=== PATIENT | female | born 1930 | race Caucasian/White ===

== ENCOUNTER 2016-10-12 13:09 | Outpatient (CLI) | payer OTHER, MEDICARE ==
--- NOTE | 2016-10-12 15:43 | DIAGNOSTIC IMAGING REPORT ---
PROCEDURE: US KIDNEY/RENAL COMPLETE INDICATION: Vaginal prolapse. Assess postvoid residual bladder volume and hydronephrosis. TECHNIQUE: Transabdominal scans of the kidneys with calculation of resistive indices. Prevoid and postvoid bladder volumes were obtained. COMPARISON: None. FINDINGS: RIGHT: Measures 10.4 x 5 x 4 cm. Cortex measures 0.9 cm. No calculi or hydronephrosis. Resistive indices measure 0.76 or less. LEFT: Measures 10 x 5 x 4 cm. Cortex measures 1 cm. Mild to moderate left hydronephrosis and dilation of the proximal left ureter of. Distal obstructing lesion not visualized. Normal resistive indices measure less than 0.69. BLADDER: Ureteral jets not visualized. Prevoid bladder volume 104 ml. Postvoid residual volume 8 ml. IMPRESSION: 1. Mild to moderate left ureterohydronephrosis. Level of obstruction not determined. Recommend CT IVP. 2. Mild bilateral renal cortical atrophy 3. 8 ml postvoid residual bladder volume
== END 2016-10-12 23:00 ==
LOC: US SRH 13:09
DX: R39.14 Feeling of incomplete bladder emptying (principal); N13.1 Hydronephrosis with ureteral stricture, not elsewhere classified; N26.1 Atrophy of kidney (terminal)

== ENCOUNTER 2016-10-19 15:51 | Outpatient (CLI) | payer OTHER, MEDICARE | END 2016-10-19 23:00 | LOC: LAB SRH 15:51 | DX: Z01.812 Encounter for preprocedural laboratory examination (principal); Z01.818 Encounter for other preprocedural examination; N13.30 Unspecified hydronephrosis | CPT/HCPCS: 90074; 92560; 92630 ==

== ENCOUNTER 2016-10-22 13:31 | Outpatient (CLI) | payer OTHER, MEDICARE ==
--- NOTE | 2016-10-22 14:36 | DIAGNOSTIC IMAGING REPORT ---
PROCEDURE: CT IVP CLINICAL INDICATION: L URETEROHYDRONEPHROSIS TECHNIQUE: Preliminary AP and lateral deck worker views of the abdomen were obtained. Subsequently, noncontrast axial images were obtained of the entire abdomen and pelvis. 125 ml of Isovue 300 was injected intravenously, and axial images were obtained of the abdomen and pelvis with biphasic imaging of the liver and kidneys, followed by sagittal and coronal reformations. Postinjection AP deck worker view of the abdomen was also obtained. COMPARISON: Renal ultrasound 10/12/2016. FINDINGS: NONCONTRAST ABDOMEN: No renal or ureteral calculi. CONTRAST ABDOMEN: Normal enhancement and excretion of the kidneys. 5 mm cortical mid right renal cyst. No hydronephrosis or mass. Normal ureters. Right middle lobe scarring. Heart size is normal. Cholecystectomy. Liver, pancreas, spleen and adrenal glands are normal. Moderate atherosclerosis of the aorta. Mild to moderate ascending, transverse and descending colon diverticulosis. Small hiatal hernia. 1.5 cm fat filled umbilical hernia. Surgical clip in the right upper quadrant subcutaneous fat. NONCONTRAST PELVIS: Normal bladder. CONTRAST PELVIS: Appendectomy and hysterectomy. Pessary in place. Normal bladder. Moderately severe sigmoid diverticulosis. No inflammatory changes or free fluid. Moderate levoscoliosis with severe degenerative changes. Grade 1 L4-5 anterolisthesis. IMPRESSION: 1. Resolved left hydroureteronephrosis 2. Cholecystectomy, appendectomy and hysterectomy 3. Diverticulosis, most severe in the sigmoid colon 4. Pessary in place All CT scans at this facility use dose modulation, iterative reconstruction, and/or weight-based dosing when appropriate to reduce radiation dose to as low as reasonably achievable.
--- NOTE | 2016-10-22 14:36 | DIAGNOSTIC IMAGING REPORT ---
PROCEDURE: CT IVP CLINICAL INDICATION: L URETEROHYDRONEPHROSIS TECHNIQUE: Preliminary AP and lateral early childhood lead teacher views of the abdomen were obtained. Subsequently, noncontrast axial images were obtained of the entire abdomen and pelvis. 125 ml of Isovue 300 was injected intravenously, and axial images were obtained of the abdomen and pelvis with biphasic imaging of the liver and kidneys, followed by sagittal and coronal reformations. Postinjection AP early childhood lead teacher view of the abdomen was also obtained. COMPARISON: Renal ultrasound 10/12/2016. FINDINGS: NONCONTRAST ABDOMEN: No renal or ureteral calculi. CONTRAST ABDOMEN: Normal enhancement and excretion of the kidneys. 5 mm cortical mid right renal cyst. No hydronephrosis or mass. Normal ureters. Right middle lobe scarring. Heart size is normal. Cholecystectomy. Liver, pancreas, spleen and adrenal glands are normal. Moderate atherosclerosis of the aorta. Mild to moderate ascending, transverse and descending colon diverticulosis. Small hiatal hernia. 1.5 cm fat filled umbilical hernia. Surgical clip in the right upper quadrant subcutaneous fat. NONCONTRAST PELVIS: Normal bladder. CONTRAST PELVIS: Appendectomy and hysterectomy. Pessary in place. Normal bladder. Moderately severe sigmoid diverticulosis. No inflammatory changes or free fluid. Moderate levoscoliosis with severe degenerative changes. Grade 1 L4-5 anterolisthesis. IMPRESSION: 1. Resolved left hydroureteronephrosis 2. Cholecystectomy, appendectomy and hysterectomy 3. Diverticulosis, most severe in the sigmoid colon 4. Pessary in place All CT scans at this facility use dose modulation, iterative reconstruction, and/or weight-based dosing when appropriate to reduce radiation dose to as low as reasonably achievable.
== END 2016-10-22 23:00 ==
LOC: CT SRH 13:31
DX: N13.1 Hydronephrosis with ureteral stricture, not elsewhere classified (principal)